=== PATIENT | male | born 1970 ===

== ENCOUNTER 2016-11-03 00:38 | Emergency (ER) | payer SELFPAY ==
[2016-11-03 00:54] VITALS: BP 135/86; PULSE 113; RESP 18; TEMP 99; O2SAT 100
--- NOTE | 2016-11-03 01:28 | ED PDOC ---
HPI: Male Pain Time Seen by Provider: 11/03/16 00:53 Chief Complaint (Nursing): Groin Pain Chief Complaint (Provider): testicular pain History Per: Patient History/Exam Limitations: no limitations Onset/Duration Of Symptoms: Days (3 months, worse today) Current Symptoms Are (Timing): Still Present Quality Of Discomfort: "Pain" Additional History Per: Patient Additional Complaint(s): 45 y/o male no past medical history presents with bilateral testicular pain x 3 months, worse tonight. Associated dysuria. Denies fever, nausea/vomiting, abdominal pain, changes in bowel movements, penile pain/discharge. Past Medical History Reviewed: Historical Data, Nursing Documentation, Vital Signs Vital Signs: Last Vital Signs Temp 99.0 F 11/03/16 00:45 Pulse 113 H 11/03/16 00:45 Resp 18 11/03/16 00:45 BP 135/86 11/03/16 00:45 Pulse Ox 100 11/03/16 00:45 - Medical History PMH: No Chronic Diseases - Surgical History Surgical History: No Surg Hx - Family History Family History: States: No Known Family Hx - Living Arrangements Living Arrangements: With Family - Home Medications Home Medications: Ambulatory Orders Medication Instructions Recorded Metformin HCl [Glucophage] 500 mg PO BID #30 tab 11/03/16 - Allergies Allergies/Adverse Reactions: Allergies Allergy/AdvReac Type Severity Reaction Status Date / Time No Known Allergies Allergy Verified 11/03/16 00:52 Review of Systems ROS Statement: Except As Marked, All Systems Reviewed And Found Negative Genitourinary Male: Positive for: Dysuria, Scrotal Pain Physical Exam - Reviewed Nursing Documentation Reviewed: Yes Vital Signs Reviewed: Yes - Physical Exam Appears: Positive for: Well, Non-toxic, No Acute Distress Head Exam: Positive for: ATRAUMATIC, NORMAL INSPECTION, NORMOCEPHALIC Skin: Positive for: Normal Color Eye Exam: Positive for: Normal appearance ENT: Positive for: Normal ENT Inspection Cardiovascular/Chest: Positive for: Regular Rate, Rhythm Respiratory: Positive for: Normal Breath Sounds Gastrointestinal/Abdominal: Positive for: Normal Exam Male Genital Exam: Positive for: no hernia, testicular tenderness (R), testicular tenderness (L), other (+ cremasteric reflex bilaterally. Exam chaperoned by Lino COHEN tech). Negative for: erythema, inguinal tenderness, urethral discharge Back: Positive for: Normal Inspection Extremity: Positive for: Normal ROM Neurologic/Psych: Positive for: Alert, Oriented - Laboratory Results Result Diagrams: 11/03/16 01:45 11/03/16 01:45 - ECG O2 Sat by Pulse Oximetry: 100 - Progress ED Course And Treament: labs, urine, testicular u/s, IV toradol, IV normal saline Patient with glucose >500; denies known history of diabetes. Metformin PO ordered. Second IV NS bolus ordered Repeat accucheck 305 EXAM: US Scrotum EXAM DATE/TIME: 11/03/2016 1:23 AM CLINICAL HISTORY: 45 years old, male; Pain; Groin pain; Additional info: Testicular pain TECHNIQUE: Real-time ultrasound of the scrotum with color Doppler and image documentation. COMPARISON: No relevant prior studies available. FINDINGS: Both testicles measure approximately 4 x 2 x 3 cm. Color flow and arterial waveforms are demonstrated to the testicles bilaterally (no torsion). 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 No testicular masses. The epidiymis are normal bilaterally. IMPRESSION: No acute findings. Testicular microlithiasis. Followup ultrasound is recommended in 1 year. Patient educated on findings, discharged with rx metformin. Advised follow up [facility]. Return to ED for worsening/concerning symptoms. Disposition - Clinical Impression Clinical Impression: Testicular microlithiasis, Hyperglycemia - Patient ED Disposition Is Patient to be Admitted: No Counseled Patient/Family Regarding: Studies Performed, Diagnosis, Need For Followup, Rx Given - Disposition Referrals: [facility] [Outside] Disposition: Routine/Home Disposition Time: 04:52 Condition: IMPROVED Prescriptions: Metformin HCl [Glucophage] 500 mg PO BID #30 tab Instructions: Testicle Pain (ED), Diabetic Hyperglycemia (ED) Print Language: TAJIK
[2016-11-03] MEDS ORDERED: Sodium Chloride 0.9% 1,000 ML IV STA ×2 (01:56→02:19)
[2016-11-03 01:59] LABS: BASO % 0.5 % (0.0-2.0); EOS # 0.1 K/uL (0.0-0.7); EOS % 0.7 % (0.0-4.0); LYMPH # 1.9 K/uL (1.0-4.3); LYMPH % 22.5 % (20.0-40.0); MEAN CELL VOLUME 91.3 fl (80.0-94.0); MEAN CORPUSCULAR HEMOGLOBIN 31.1 pg (27.0-31.0); MEAN PLATELET VOLUME 8.7 fl (7.2-11.7); MONO # 0.7 K/uL (0.0-0.8); NEUT # 5.9 K/uL (1.8-7.0); NEUT % 68.3 % (50.0-75.0); NRBC % 0.1 % (0.0-0.0); RED CELL DISTRIBUTION WIDTH 13.4 % (11.5-14.5); WHITE BLOOD COUNT 8.6 K/uL (4.8-10.8)
[2016-11-03 02:01] LABS: RBC URINE 2 /hpf (0-3); URINE BACTERIA RARE (<OCC); URINE BILIRUBIN NEGATIVE (NEGATIVE); URINE BLOOD NEGATIVE (NEGATIVE); URINE COLOR STRAW (YELLOW); URINE GLUCOSE (UA) >=500 mg/dL (Normal); URINE KETONE NEGATIVE (NEGATIVE); URINE LEUKOCYTE ESTERASE NEG Leu/uL (Negative); URINE PROTEIN NEGATIVE (NEGATIVE); URINE UROBILINOGEN 0.2-1.0 mg/dL (0.2-1.0); WBC URINE < 1 /hpf (0-5)
[2016-11-03 02:07] LABS: BLOOD UREA NITROGEN 8 mg/dl (9-20); CARBON DIOXIDE 24 mmol/L (22-30); CHLORIDE 95 mmol/L (98-107); GFR AFRICAN-AMERICAN > 60; POTASSIUM 4.2 MMOL/L (3.6-5.0); SODIUM 133 mmol/l (132-148)
[2016-11-03 02:08] LABS: CALCIUM 9.1 mg/dL (8.4-10.2)
[2016-11-03 02:09] LABS: GLUCOSE,RANDOM 527 mg/dL (75-110)
[2016-11-03 02:15] LABS: TOTAL PROTEIN 6.9 G/DL (6.3-8.2)
[2016-11-03 02:17] LABS: ALB/GLOB RATIO 1.6 (1.0-2.1)
[2016-11-03 02:17] LABS: ABG ALLEN TEST YES; ARTERIAL BLOOD GAS HCO3 25.9 mmol/L (21-28); ARTERIAL BLOOD GAS PH 7.42 (7.35-7.45); ARTERIAL BLOOD GAS PO2 91 mm/Hg (80-100)
[2016-11-03 02:18] LABS: BILIRUBIN,TOTAL 0.5 mg/dl (0.2-1.3)
--- NOTE | 2016-11-03 03:08 | US ---
EXAM: US Scrotum EXAM DATE/TIME: 11/03/2016 1:23 AM CLINICAL HISTORY: 45 years old, male; Pain; Groin pain; Additional info: Testicular pain TECHNIQUE: Real-time ultrasound of the scrotum with color Doppler and image documentation. COMPARISON: No relevant prior studies available. FINDINGS: Both testicles measure approximately 4 x 2 x 3 cm. Color flow and arterial waveforms are demonstrated to the testicles bilaterally (no torsion). 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 No testicular masses. The epidiymis are normal bilaterally. IMPRESSION: No acute findings. Testicular microlithiasis. Followup ultrasound is recommended in 1 year.
[2016-11-03 04:49] LABS: VENOUS BLOOD GAS BASE EXCESS 2.3 mmol/L (0.0-2.0); VENOUS BLOOD GAS PCO2 56 mmHg (40-60); VENOUS BLOOD PH 7.33 (7.32-7.43)
== END 2016-11-03 05:23 | disposition home or self-care (01) ==
LOC: EDBD 00:38 → H.ER 00:38
DX: N50.819 Testicular pain, unspecified (principal); E11.65 Type 2 diabetes mellitus with hyperglycemia
CPT/HCPCS: 80048; 80076; 81003; 82803; 82948; 83036; 85025; 87086; 87491; 87591; 93975; 99283; J1885; J7040